=== PATIENT | male | born 1985 | race Caucasian/White ===

== ENCOUNTER 2017-02-15 23:11 | Emergency (ER) | payer MEDICAID ==
[2017-02-15 23:19] VITALS: RESP 16; TEMP 98.1
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
[2017-02-16 01:14] VITALS: BP 118/89; PULSE 97; O2SAT 94
== END 2017-02-16 01:23 | disposition home or self-care (01) ==
PROC: 3E0T3BZ Introduction of Anesthetic Agent into Peripheral Nerves and Plexi, Percutaneous Approach (ICD-10-PCS; principal; 2017-02-15)
DX: S62.612A Displaced fracture of proximal phalanx of right middle finger, initial encounter for closed fracture (principal); F17.200 Nicotine dependence, unspecified, uncomplicated; V11.4XXA Pedal cycle driver injured in collision with other pedal cycle in traffic accident, initial encounter; Y92.410 Unspecified street and highway as the place of occurrence of the external cause; Y93.55 Activity, bike riding
CPT/HCPCS: L3925

== ENCOUNTER 2017-10-08 13:13 | Emergency (ER) | payer MEDICAID ==
[2017-10-08] MEDS ORDERED: traMADol 50 MG TAB PO ONE (14:07)
--- NOTE | 2017-10-08 14:57 | EDPHY ---
H & P Time Seen by Provider: 10/08/17 14:03 HPI/ROS: This patient presents with pain and swelling to his right 4th finger-palmar aspect, middle phalanx area with redness and tenderness. He explains that he was using gardening pam note some blisters about 5 days prior to arrival in the over the past 24 hr developed swelling and redness to the area described. The pain is moderate intensity. He reports partial improvement from over-the- counter analgesics-600 mg of ibuprofen 3 hr prior to arrival and no other exacerbating factors. Came in by private vehicle for further evaluation. ROS: Constitutional: No fevers or chills Integumentary: No other skin lesions or complaints Musculoskeletal: No bony pain in the affected finger Neuro: No numbness or tingling 5 point ROS is otherwise negative Past Medical/Surgical History: Otherwise healthy Immunizations up-to-date Smoking Status: Heavy smoker Physical Exam: Physical Exam Vital signs are normal. General: No acute distress Lungs: No respiratory distress. Extremities: Atraumatic normal except for right 4th finger exam: Patient has swelling and fluctuance to the palmar aspect of the right 4th finger middle phalanx area. Despite this is able flex extend his finger. Kanavel's signs are negative except for mild circumferential swelling. Cardiac: Brisk capillary refill is intact throughout. Skin: No rash or pallor. Neuro: Alert and oriented x3 with no sensorimotor deficits in the affected finger. Initial differential diagnosis: Foreign body to finger with infection, abscess , cellulitis Constitutional: Initial Vital Signs Temperature (C) 36.3 C 10/08/17 13:32 Heart Rate 95 10/08/17 13:32 Respiratory Rate 16 10/08/17 13:32 Blood Pressure 124/89 H 10/08/17 13:32 O2 Sat (%) 96 10/08/17 13:32 O2 Delivery Mode Room Air Allergies/Adverse Reactions: No Known Allergies Allergy (Unverified 02/15/17 23:18) Home Medications: Medication Instructions Recorded Cephalexin [Keflex (*)] 500 mg PO TID #30 cap 10/08/17 MDM/Departure - MDM Diagnostics: Two view finger x-rays reveal no evidence of foreign body or osteomyelitis by my interpretation Imaging: I viewed and interpreted images myself Procedures: Digital block: After verbal consent, using a 50 50 mix of 0.5% Marcaine 2% plain lidocaine, 27 gauge needle, chlorhexidine scrub under sterile conditions- 3 injections were administered to the base of the affected finger, 8 mL with good effect. Patient tolerated this well. There were no complications. I&D abscess: After verbal consent I cleaned the wound with chlorhexidine and used a 11. Scalpel blade to make a small T-shaped incision over the area fluctuance with release of a moderate amount of purulent fluid. I then irrigated the abscess with saline under pressure -20 cc. Patient tolerated this well. Bandage was then applied. Counseled him regarding abscess. A culture sent and pending. Medications Given: Discontinued Medications Tramadol HCl (Ultram) 50 mg PO EDNOW ONE Stop: 10/08/17 14:08 Last Admin: 10/08/17 14:24 Dose: 50 mg ED Course/Re-evaluation: Studies: Wound culture subsequently grew Staph aureus-methicillin sensitive Started the patient on Keflex antibiotic instructed him regarding wound care. He understands need to return emergency department should he develop any significant worsening of symptoms despite the treatment plan. - Depart Disposition: Home, Routine, Self-Care Clinical Impression: Abscess of finger Qualifiers: Laterality: right Qualified Code(s): L02.511 - Cutaneous abscess of right hand Condition: Good Instructions: Cellulitis (ED) Additional Instructions: Diagnosis: Finger abscess/cellulitis Plan: We drained finger here in emergency department Plan: Start Keflex antibiotic intake for 10 days Ibuprofen Tylenol for pain as needed. After 24 hr, remove the dressing and clean daily with warm soapy water. Keep bandage over the wound until it is healed. However let the wound get some air for part of the day each day with bandage removed while resting at home. Return emergency department if he developed worsening redness or other concerns for ongoing infection despite the treatment plan. Prescriptions: Cephalexin [Keflex (*)] 500 mg PO TID #30 cap Referrals: NONE *PRIMARY CARE P,. [Primary Care Provider] - As per Instructions
[2017-10-08 15:11] VITALS: BP 114/78
== END 2017-10-08 15:06 | disposition home or self-care (01) ==
LOC: CED 13:13
PROC: 0H9FXZZ Drainage of Right Hand Skin, External Approach (ICD-10-PCS; principal; 2017-10-08)
DX: L02.511 Cutaneous abscess of right hand (principal); F17.200 Nicotine dependence, unspecified, uncomplicated
CPT/HCPCS: 73140-PO